=== PATIENT | male | born 1950 | race Caucasian/White ===

== ENCOUNTER 2025-04-21 11:42 | Day surgery (SDC) | payer MEDICARE, OTHER ==
[2025-04-21] MEDS ORDERED: Sodium Chloride 0.9(Preservative Free) 10 ML IJ ONE (11:43)
[2025-04-21] MEDS ORDERED: LIDOCAINE HCL 1% 50 MG/5 ML VL IJ ONE (11:43)
[2025-04-21] MEDS ORDERED: propofoL IV ONE (13:52)
--- NOTE | 2025-04-21 14:34 | XRAY ---
Indication: Right L4-S1 transforaminal ZI. Intraoperative fluoroscopy provided for 19 seconds. 6 digital spot image submitted for interpretation demonstrates posterior needle tips projecting over expected right L4 and L5 nerve roots. Small amount of contrast injected for needle tip placement. Correlate with intraoperative findings/report.
--- NOTE | 2025-04-21 14:34 | XRAY ---
Indication: Right piriformis injection. Intraoperative fluoroscopy provided for 10 seconds. Single digital spot image submitted for interpretation demonstrates posterior needle tip projecting over right piriformis. Small amount of contrast injected for needle tip placement. Correlate with intraoperative findings/report.
[2025-04-21] MEDS ORDERED: Lactated Ringers 1,000 ML IV ONE (14:45)
--- NOTE | 2025-04-21 15:24 | XRAY ---
19 seconds of fluoroscopy was used in surgery for a right L4-S1 transforaminal ZI.
--- NOTE | 2025-04-21 15:25 | XRAY ---
10 seconds of fluoroscopy was used in surgery for a right piriformis injection.
== END 2025-04-21 14:23 | disposition home or self-care (01) ==
LOC: SDC-PAIN 11:42
PROVIDERS: ATTEND Psychiatry & Neurology Pain Medicine
DX: M54.16 Radiculopathy, lumbar region (principal); M79.18 Myalgia, other site